=== PATIENT | male | born 1960 | race Two or more races ===

== ENCOUNTER 2023-12-22 14:08 | Emergency (ER) | payer OTHER ==
[~2023-12-22] VITALS: Ht 182.9 cm; Wt 150.0 kg
[2023-12-22 14:12] VITALS: O2SAT 0
[2023-12-22] MEDS ORDERED: DEXTROSE 50% WATER 50ML SYRINGE IV ONE (14:19)
[2023-12-22 14:24] VITALS: TEMP 98.4
[2023-12-22 14:34] VITALS: BP 0/0; PULSE 0; RESP 0
[2023-12-23] MEDS ORDERED: DEXTROSE 50% WATER 50ML SYRINGE IV ONE (13:00)
== END 2023-12-22 14:34 ==
LOC: ER 14:08 → EDBD 14:08 → ER 14:34
DX: I46.9 Cardiac arrest, cause unspecified (principal); I10 Essential (primary) hypertension
CPT/HCPCS: 31500; 36556; 82962; 92950; 99285